=== PATIENT | female | born 1950 | race Caucasian/White ===

== ENCOUNTER → 2018-08-17 | Outpatient (CLI) | payer BC, MEDICARE ==
--- NOTE | 2018-08-17 13:07 | XR ---
EXAMINATION TYPE: XR KUB DATE OF EXAM: 08/17/2018 CLINICAL DATA: 67-year-old female with pain, possible kidney stones, PHH COMPARISON: 10/28/2012 FINDINGS: Nonobstructive bowel gas pattern. Scattered mild to moderate stool. Left renal shadow largely obscured by bowel content. No definite suspicious calcifications are seen. Again, left side is limited by bowel content. Moderate to severe degenerative change of the right hip progressed from 2012. Facet arthropathy lower lumbar spine. IMPRESSION: Nonobstructive bowel gas pattern. Left renal shadow largely obscured by bowel content. No definite fontaine spicious calcification is radiographically apparent. Progressive moderate to severe OA right hip.
== END ==
LOC: RADXRMAIN 11:20
PROVIDERS: ATTEND Urology
DX: N20.0 Calculus of kidney (principal)
CPT/HCPCS: 74018

== ENCOUNTER → 2018-09-21 | Outpatient (CLI) | payer MEDICARE, BC ==
--- NOTE | 2018-09-21 15:14 | XR ---
EXAMINATION TYPE: XR Hip Complete RT DATE OF EXAM: 09/21/2018 COMPARISON: None HISTORY: 67-year-old female complaining of right hip pain TECHNIQUE: 2 views FINDINGS: Moderate degenerative change with subchondral sclerosis and prominent collar osteophytes at the femor al head neck junction and mild axial joint space narrowing. No acute fracture, subluxation, or disloc ation. IMPRESSION: Moderate right hip OA. No acute osseous abnormality seen.
== END | disposition home or self-care (01) ==
LOC: RADXRMAIN 12:32
PROVIDERS: ATTEND Family Medicine
DX: M16.11 Unilateral primary osteoarthritis, right hip (principal)
CPT/HCPCS: 73502

== ENCOUNTER → 2020-07-18 | Outpatient (CLI) | payer MEDICARE, BC ==
--- NOTE | 2020-07-18 14:59 | XR ---
EXAMINATION TYPE: XR cervical spine comp DATE OF EXAM: 07/18/2020 COMPARISON: None HISTORY: 69-year-old female M54.2, neck and arm pain TECHNIQUE: 6 views FINDINGS: No predental space widening or prevertebral soft tissue swelling. Advanced disc/endplate degenerative change particularly from C4 through C7 levels. Prominent anterior endplate spondylosis is present wi th complete loss of disc space. Multilevel facet and uncovertebral joint arthropathy. Reversal of the normal cervical lordosis. On the left, there is moderate bony neuroforaminal narrowing at C6-C7. On the right, moderate bony neuroforaminal narrowing C6-C7 and mild additional levels. Limited odontoid view shows no gross abnormality. IMPRESSION: Moderate to advanced spondylotic change. Reversal of the normal cervical lordosis but with preserved alignment.
== END | disposition home or self-care (01) ==
LOC: RADXRMAIN 12:38
PROVIDERS: ATTEND Nurse Practitioner Family
DX: M47.812 Spondylosis without myelopathy or radiculopathy, cervical region (principal)
CPT/HCPCS: 72050

== ENCOUNTER → 2021-09-13 | Outpatient (CLI) | payer MEDICARE, BC ==
--- NOTE | 2021-09-13 16:49 | BD ---
EXAMINATION TYPE: Axial Bone Density DATE OF EXAM: 09/13/2021 COMPARISON: 06.30.2012 CLINICAL HISTORY: 70 years year old Female. ICD-10 CODE: M85.80 DISORDER OF BONE DENSITY Height: 65 Weight: 147 FRAX RISK QUESTIONS: Glucocorticoids (More than 3mos): YES (Ex: prednisone, prednisolone, methylprednisolone, dexamethasone, and hydrocortisone). History of Fracture in Adulthood: YES Secondary Osteoporosis: YES 3. Menopause before 45: YES, AT 41 Current Tobacco Use: YES RISK FACTORS HISTORY OF: HX OF NASAL FX WITH FALL 2 MOS AGO History of Wrist Fracture: LT WRIST WITH JOINT REPLACEMENT Surgery to RT HIP REPLACEMENT, AT AGE 66 YRS OLD Family History of Osteoporosis: YES, MOTHER WITHOUT HIP FX Diet low in dairy products/other sources of calcium: YES Postmenopausal woman: YES, AT AGE 41 YRS OLD Take estrogen and/or progesterone medications: YES, FOR ABOUT 5+ YRS IN THE PAST NOT NOW Lost more than 2 inches in height since high school: YES Frequent falls: RECENT 2 MOS AGO Hyperparathyroidism: NO Adrenal Insufficiency: NO MEDICATIONS: Prednisone or other steroids: YES, FOR ASTHMA, BOTH INHALER AND ORAL MEDS, INC PREDNISONE Additional Medications: BP MEDS, PAXIL, XANAX, STATIN FOR CHOLESTEROL, VIT D, NORCO Additional History: HYPERTENSION, ARTHRITIS, CHOLESTEROL, EXAM MEASUREMENTS: Bone mineral densitometry was performed using the [employer] System. Bone mineral density as measured about the Lumbar spine is: ----- L1-L4(G/cm2): 1.073 T Score Values are as follows: ----- L1: -1.1 ----- L2: -1.3 ----- L3: 0.1 ----- L4: -1.4 ----- L1-L4: -0.9 Bone mineral density has: Increased 7.7% since study of: 06.30.2012 Bone mineral density about the L hip (g/cm2): 0.955 T Score values are as follows: -----L Neck: -0.7 -----L Total: -0.4 Bone mineral density has: Decreased -7.6% since study of: 06.30.2012 FRAX%s: The graph provided illustrates a 4.9% chance for a major osteoporotic fx and a 1.1% chance fo r the hips probability for fx in 10 years time. IMPRESSION: Osteopenia (T Score between -2.5 and -1). There is slightly increased risk of fracture and the patient may be considered for treatment. Re-Screen 2-5 years. NOTE: T-SCORE=SD OF THE YOUNG ADULT MEAN.
== END | disposition home or self-care (01) ==
LOC: RADBDWWP 13:00
PROVIDERS: ATTEND Family Medicine
DX: M85.88 Other specified disorders of bone density and structure, other site (principal)
CPT/HCPCS: 77080

== ENCOUNTER → 2021-12-18 | Outpatient (CLI) | payer MEDICARE, BC ==
--- NOTE | 2021-12-18 14:38 | CTL ---
EXAMINATION TYPE: CT Low Dose Lung DATE OF EXAM ORDERED: 12/18/2021 COMPARISON: 09/08/2014 HISTORY: . Low Dose CT Lung Screening IV CONTRAST USED: None. SCREENING VISIT: First visit COMPARISON: None. TECHNIQUE: Low dose computed tomography scan was performed through the chest at 1 millimeter thick se ctions and reconstructed images in the coronal plane at [address] DIAGNOSTIC QUALITY: Satisfactory FINDINGS: LUNG NODULES: Not presentLeft lung: no nodules identified.Right lung: no nodules identified. LUNGS: COPD: Severity: Moderate Fibrosis: Severity:None Lymph nodes: None Other findings: None RIGHT PLEURAL SPACE: Effusion: None Calcification: None Thickening: None Pneumothorax: None LEFT PLEURAL SPACE: Effusion: None Calcification: None Thickening: None Pneumothorax: None HEART: Heart Size: Mildly enlarged Coronary calcification: Mild Pericardial effusion: None OTHER FINDINGS: Upper abdomen: No significant abnormality Bony thorax: Degenerative changes Supraclavicular region: No significant abnormalityOther: No significant abnormalityI IMPRESSION: COPD without evidence for distinct pulmonary nodularity. FOLLOW UP CT CHEST RECOMMENDATION: Follow-up screening in one year CT LUNG RAD: LUNG RAD CATEGORY 1 negative
== END | disposition home or self-care (01) ==
LOC: RADCTMAIN 13:50
PROVIDERS: ATTEND Family Medicine
DX: Z12.2 Encounter for screening for malignant neoplasm of respiratory organs (principal); J44.9 Chronic obstructive pulmonary disease, unspecified; Z87.891 Personal history of nicotine dependence
CPT/HCPCS: 71271

== ENCOUNTER 2023-06-28 11:29 | Emergency (ER) | payer MEDICARE, BC ==
--- NOTE | 2023-06-28 12:38 | XR ---
EXAMINATION TYPE: XR chest 2V DATE OF EXAM: 06/28/2023 COMPARISON: 10/20/2013 HISTORY: Cough TECHNIQUE: Frontal and lateral views of the chest are obtained. FINDINGS: There are a few linear opacities left lung base likely indicating minimal atelectasis or chronic inte rstitial change. There is no airspace consolidation. There is no pleural effusion or pneumothorax. The heart and pulmonary vasculature are normal. There is marked dextroscoliosis of the thoracic spine.. IMPRESSION: No acute cardiopulmonary process.
[2023-06-28] MEDS: IPRATROPIUM-ALBUTEROL 3 ML NEB INHALATION STA (12:44)
[2023-06-28] MEDS: SODIUM CHLORIDE 0.9% 1,000 ML IV STA (13:09)
[2023-06-28] MEDS: ONDANSETRON 4 MG/2 ML VIAL IVP STA (13:10)
[2023-06-28] MEDS: KETOROLAC 15 MG/ML 1 ML VIAL IVP STA (13:10)
--- NOTE | 2023-06-28 13:11 | ED ---
Abdominal Pain HPI - General Chief Complaint: Abdominal Pain Stated Complaint: abd pain Time Seen by Provider: 06/28/23 11:58 Source: patient, RN notes reviewed Mode of arrival: ambulatory Limitations: no limitations - History of Present Illness Initial Comments: This is a 72-year-old female who presents to the emergency department for abdominal pain. Reports left lower quadrant abdominal pain over the last couple of days. She has nausea but no vomiting. States that she had diarrhea yesterday and had 8 bowel movements. She has a history of diverticulitis, most recently a few years ago. States that the pain feels similar. Denies any blood in her stool. Additionally, she has had coughing and congestion over the last week. She does have a history of COPD but does not use any breathing treatments. Denies any fevers or chills. MD Complaint: abdominal pain - Related Data Home Medications Medication Instructions Recorded Confirmed ALPRAZolam [Xanax] 1 mg PO TID 10/20/13 10/20/13 Atorvastatin [Lipitor] 40 mg PO DAILY 10/20/13 10/20/13 Dextroamphetamine/Amphetamine 20 mg PO BID 10/20/13 10/20/13 [Adderall] HYDROcodone/APAP 7.5-325MG [[place] 1 tab PO BID 10/20/13 10/20/13 7.5-325] PARoxetine HCL [Paxil Cr] 25 mg PO DAILY 10/20/13 10/20/13 Tolterodine ER [Detrol LA] 4 mg PO DAILY 10/20/13 10/20/13 lisinopriL [Zestril] 20 mg PO DAILY 10/20/13 10/20/13 Previous Rx's Medication Instructions Recorded Levofloxacin [Levaquin] 500 mg PO DAILY #10 tab 10/20/13 Hydrocodone/Acetaminophen [[place] 1 each PO Q6HR PRN #20 tab 02/24/14 5-325] Atorvastatin [Lipitor] 40 mg PO DAILY #30 tablet 06/28/23 Azithromycin [Zithromax] 250 mg PO DIRECTED 5 Days #6 tab 06/28/23 NIFEdipine XL [Procardia XL] 60 mg PO DAILY #30 tab 06/28/23 PARoxetine HCL 40 mg PO DAILY #30 tablet 06/28/23 lisinopriL [Prinivil] 20 mg PO DAILY #30 tablet 06/28/23 predniSONE 50 mg PO DAILY 5 Days #5 tab 06/28/23 Allergies Allergy/AdvReac Type Severity Reaction Status Date / Time outdoor allergies Allergy Unknown Uncoded 06/28/23 11:51 Review of Systems ROS Statement: Those systems with pertinent positive or pertinent negative responses have been documented in the HPI. ROS Other: All systems not noted in ROS Statement are negative. Past Medical History Past Medical History: COPD, Hyperlipidemia, Hypertension, Osteoarthritis (OA) Additional Past Medical History / Comment(s): diverticulitis History of Any Multi-Drug Resistant Organisms: None Reported Past Surgical History: Section, Hysterectomy, Orthopedic Surgery Past Psychological History: Anxiety Smoking Status: Former smoker Past Alcohol Use History: None Reported Past Drug Use History: None Reported General Exam Limitations: no limitations General appearance: alert, in no apparent distress Head exam: Present: atraumatic, normocephalic, normal inspection Respiratory exam: Present: wheezes, decreased breath sounds, prolonged e xpiratory Cardiovascular Exam: Present: regular rate, normal rhythm, normal heart sounds. Absent: systolic murmur, diastolic murmur, rubs, gallop, clicks GI/Abdominal exam: Present: soft, tenderness (LLQ), normal bowel sounds. Absent: distended Neurological exam: Present: alert, oriented X3, CN II-XII intact Psychiatric exam: Present: normal affect, normal mood Skin exam: Present: warm, dry, intact, normal color. Absent: rash Course Vital Signs 06/28/23 06/28/23 06/28/23 11:48 12:44 12:56 Temperature 99.1 F Pulse Rate 108 H 83 85 Respiratory 18 Rate Blood Pressure 137/76 O2 Sat by Pulse 93 L Oximetry 06/28/23 06/28/23 06/28/23 13:13 15:13 18:04 Temperature 98.0 F Pulse Rate 94 84 94 Respiratory 16 20 20 Rate Blood Pressure 140/70 126/69 141/72 O2 Sat by Pulse 95 93 L 93 L Oximetry Medical Decision Making - Medical Decision Making This is a 72 year old female who presents to the emergency department for abdominal pain. Was pt. sent in by a medical professional or institution? @ -No Did you speak to anyone other than the patient for history? @ -No Did you review nursing and triage notes? @ -Yes, and I agree, it is accurate with regards to the patient's symptoms. Were old charts reviewed? @ -No Differential Diagnosis? @ -Differential Abdominal Pain Women: Appendicitis, Cholecystitis, diverticulosis, ischemic bowel, pancreatitis, hepatitis, UTI, gastroenteritis, AAA, incarcerated hernia, bowel obstruction, constipation, inflammatory bowel, hepatitis, peptic ulcer disease, splenic infarction, perforated viscus, vulvitis, ovarian torsion, PID, kidney stone, placenta abruption, this is not meant to be an all-inclusive list EKG interpreted by me (3pts min.)? @ -EKG interpreted by me demonstrating the following: Sinus rhythm. Ventricular rate 86 bpm, SD interval 133 ms, QRS duration 91 ms, QTc 405 ms. X-rays interpreted by me (1pt min.)? @ -Chest x-ray obtained, my interpretation identifies no localized consolidations or infiltrates. CT interpreted by me (1pt min.)? @ -CT scan of the abdomen and pelvis obtained. My interpretation identifies no evidence of bowel wall thickening or free air. U/S interpreted by me (1pt. min.)? @ -Not obtained What testing was considered but not performed? (CT, X-rays, U/S, labs)? Why? @ -None What meds were considered but not given? Why? @ -None Did you discuss the management of the patient with other professionals? @ -No Did you reconcile home meds? @ -No Was smoking cessation discussed for >3mins.? @ -I discussed smoking cessation for greater than 3 minutes. The risk of smoking were discussed with the patient including but not limited to risks of cancer, stroke, coronary artery disease and COPD. Also discussed with patient were multiple methods of quitting smoking. Lastly we discussed the financial cost of smoking. Was critical care preformed (if so, how long)? @ -No Were there social determinants of health that impacted care today? How? (Homelessness, low income, unemployed, alcoholism, drug addiction, transportation, low edu. Level, literacy, decrease access to med. care, shelter, rehab)? @ -No Was there de-escalation of care discussed even if they declined? (Discuss DNR or withdrawal of care, Hospice)? @ -No What co-morbidities impacted this encounter? (DM, HTN, Smoking, COPD, CAD, Cancer, CVA, Hep., AIDS, mental health diagnosis, sleep apnea, morbid obesity)? @ -COPD, smoking, diverticulosis Was patient admitted / discharged? @ -Discharged. Lab work demonstrates leukocytosis and was otherwise unremarkable. Urinalysis negative for signs of infection. COVID, influenza, and RSV testing were negative. CT scan of the abdomen and pelvis demonstrates no acute process to account for the patient's symptoms. Abdominal pain may be related to all of the coughing and a muscular strain. Due to the COPD, will treat patient for COPD exacerbation based on her symptoms. Prescription for azithromycin and prednisone provided with dosing instructions reviewed. She does have an albuterol inhaler at home that she will continue to use. She requested a temporary refill on her blood pressure, hypertension, and depression medication due to difficulty getting in with her PCP. This was provided as well. Patient discharged home in stable condition. Undiagnosed new problem with uncertain prognosis? @ -None Drug Therapy requiring intensive monitoring for toxicity (Heparin, Nitro, Ins ulin, Cardizem)? @ -None Were any procedures done? @ -None Diagnosis/symptom? @ -Abdominal pain Acute, or Chronic, or Acute on Chronic? @ -Acute Uncomplicated (without systemic symptoms) or Complicated (systemic symptoms)? @ -Uncomplicated Side effects of treatment? @ -None Exacerbation, Progression, or Severe Exacerbation] @ -Not applicable Poses a threat to life or bodily function? @ -No Diagnosis/symptom? @ -COPD exacerbation Acute, or Chronic, or Acute on Chronic? @ -Acute on chronic Uncomplicated (without systemic symptoms) or Complicated (systemic symptoms)? @ -Uncomplicated Side effects of treatment? @ -None Exacerbation, Progression, or Severe Exacerbation] @ -Exacerbation Poses a threat to life or bodily function? @ -No Return precautions reviewed in depth, the patient is instructed to return to the emergency department with any new, worsening, or concerning symptoms. Patient verbalized understanding. This case was discussed in detail with the attending ED physician, Dr. Cain. Presentation, findings, and treatment plan discussed in detail as well. - Lab Data Result diagrams: 06/28/23 12:22 06/28/23 12:22 Lab Results 06/28/23 06/28/23 06/28/23 Range/Units 12:22 12:22 12:22 WBC 11.6 H (3.8-10.6) k/uL RBC 4.81 (3.80-5.40) m/uL Hgb 14.4 (11.4-16.0) gm/dL Hct 43.4 (34.0-46.0) % MCV 90.3 (80.0-100.0) fL MCH 30.0 (25.0-35.0) pg MCHC 33.3 (31.0-37.0) g/dL RDW 12.5 (11.5-15.5) % Plt Count 411 (150-450) k/uL MPV 7.4 Neutrophils % 68 % Lymphocytes % 24 % Monocytes % 6 % Eosinophils % 0 % Basophils % 1 % Neutrophils # 7.9 H (1.3-7.7) k/uL Lymphocytes # 2.8 (1.0-4.8) k/uL Monocytes # 0.7 (0-1.0) k/uL Eosinophils # 0.0 (0-0.7) k/uL Basophils # 0.1 (0-0.2) k/uL Sodium 137 (137-145) mmol/L Potassium 3.9 (3.5-5.1) mmol/L Chloride 103 (98-107) mmol/L Carbon Dioxide 22 (22-30) mmol/L Anion Gap 12 mmol/L BUN 14 (7-17) mg/dL Creatinine 0.92 (0.52-1.04) mg/dL Est GFR (CKD-EPI)AfAm 73 (>60 ml/min/1.73 sqM) Est GFR (CKD-EPI)NonAf 63 (>60 ml/min/1.73 sqM) Glucose 99 (74-99) mg/dL Plasma Lactic Acid Dmitry (0.7-2.0) mmol/L Calcium 9.8 (8.4-10.2) mg/dL Total Bilirubin 0.4 (0.2-1.3) mg/dL AST 25 (14-36) U/L ALT 19 (4-34) U/L Alkaline Phosphatase 102 (38-126) U/L Total Protein 7.3 (6.3-8.2) g/dL Albumin 4.5 (3.5-5.0) g/dL Amylase 78 (30-110) U/L Lipase 170 (23-300) U/L Urine Color Colorless Urine Appearance Clear (Clear) Urine pH 6.0 (5.0-8.0) Ur Specific Hessel 1.011 (1.001-1.035) Urine Protein Negative (Negative) Urine Glucose (UA) Negative (Negative) Urine Ketones Negative (Negative) Urine Blood Negative (Negative) Urine Nitrite Negative (Negative) Urine Bilirubin Negative (Negative) Urine Urobilinogen <2.0 (<2.0) mg/dL Ur Leukocyte Esterase Negative (Negative) Influenza Type A (PCR) (Not Detectd) Influenza Type B (PCR) (Not Detectd) RSV (PCR) (Not Detectd) SARS-CoV-2 (PCR) (Not Detectd) 06/28/23 06/28/23 Range/Units 12:22 12:22 WBC (3.8-10.6) k/uL RBC (3.80-5.40) m/uL Hgb (11.4-16.0) gm/dL Hct (34.0-46.0) % MCV (80.0-100.0) fL MCH (25.0-35.0) pg MCHC (31.0-37.0) g/dL RDW (11.5-15.5) % Plt Count (150-450) k/uL MPV Neutrophils % % Lymphocytes % % Monocytes % % Eosinophils % % Basophils % % Neutrophils # (1.3-7.7) k/uL Lymphocytes # (1.0-4.8) k/uL Monocytes # (0-1.0) k/uL Eosinophils # (0-0.7) k/uL Basophils # (0-0.2) k/uL Sodium (137-145) mmol/L Potassium (3.5-5.1) mmol/L Chloride (98-107) mmol/L Carbon Dioxide (22-30) mmol/L Anion Gap mmol/L BUN (7-17) mg/dL Creatinine (0.52-1.04) mg/dL Est GFR (CKD-EPI)AfAm (>60 ml/min/1.73 sqM) Est GFR (CKD-EPI)NonAf (>60 ml/min/1.73 sqM) Glucose (74-99) mg/dL Plasma Lactic Acid Dmitry 1.0 (0.7-2.0) mmol/L Calcium (8.4-10.2) mg/dL Total Bilirubin (0.2-1.3) mg/dL AST (14-36) U/L ALT (4-34) U/L Alkaline Phosphatase (38-126) U/L Total Protein (6.3-8.2) g/dL Albumin (3.5-5.0) g/dL Amylase (30-110) U/L Lipase (23-300) U/L Urine Color Urine Appearance (Clear) Urine pH (5.0-8.0) Ur Specific Hessel (1.001-1.035) Urine Protein (Negative) Urine Glucose (UA) (Negative) Urine Ketones (Negative) Urine Blood (Negative) Urine Nitrite (Negative) Urine Bilirubin (Negative) Urine Urobilinogen (<2.0) mg/dL Ur Leukocyte Esterase (Negative) Influenza Type A (PCR) Not Detected (Not Detectd) Influenza Type B (PCR) Not Detected (Not Detectd) RSV (PCR) Not Detected (Not Detectd) SARS-CoV-2 (PCR) Not Detected (Not Detectd) - Radiology Data Radiology results: report reviewed, image reviewed Disposition Clinical Impression: Nicotine dependence, Abdominal pain, COPD exacerbation Disposition: HOME SELF-CARE Instructions (If sedation given, give patient instructions): Abdominal Pain (ED) Additional Instructions: Return to the emergency department with any new, worsening, or concerning symptoms. Take the antibiotic as prescribed for 5 days and the prednisone daily for 5 days. Continue to use your albuterol inhaler as needed. Follow up with your primary care provider in 1-2 days. Prescriptions: Atorvastatin [Lipitor] 40 mg PO DAILY #30 tablet PARoxetine HCL 40 mg PO DAILY #30 tablet predniSONE 50 mg PO DAILY 5 Days #5 tab lisinopriL [Prinivil] 20 mg PO DAILY #30 tablet NIFEdipine XL [Procardia XL] 60 mg PO DAILY #30 tab Azithromycin [Zithromax] 250 mg PO DIRECTED 5 Days #6 tab Is patient prescribed a controlled substance at d/c from ED?: No Referrals: None,Stated [Primary Care Provider] - 1-2 days Time of Disposition: 17:43
[2023-06-28 13:16] LABS: Basophils # (A) 0.1 k/uL (0-0.2); Basophils % (A) 1 %; Eosinophils % (A) 0 %; HCT 43.4 % (34.0-46.0); HGB 14.4 gm/dL (11.4-16.0); Lymphocytes # (A) 2.8 k/uL (1.0-4.8); Lymphocytes % (A) 24 %; MCHC 33.3 g/dL (31.0-37.0); MCV 90.3 fL (80.0-100.0); Mean Platelet Volume 7.4; Monocytes # (A) 0.7 k/uL (0-1.0); Monocytes % (A) 6 %; Neutrophils # (A) 7.9 k/uL (1.3-7.7); Neutrophils % (A) 68 %; Platelet Count 411 k/uL (150-450); RBC 4.81 m/uL (3.80-5.40); RDW 12.5 % (11.5-15.5); WBC 11.6 k/uL (3.8-10.6)
[2023-06-28 13:21] LABS: Appearance,Urine Clear (Clear); Bilirubin,Urine Negative (Negative); Blood,Urine Negative (Negative); Color,Urine Colorless; Glucose,Urine (UA) Negative (Negative); Ketones,Urine Negative (Negative); Leukocyte Esterase,Urine Negative (Negative); Nitrite,Urine Negative (Negative); Protein,Urine Negative (Negative); Specific Gravity,Urine 1.011 (1.001-1.035); Urobilinogen,Urine <2.0 mg/dL (<2.0)
[2023-06-28 13:26] LABS: ALT 19 U/L (4-34); AST 25 U/L (14-36); African American GFR (CKD) 73 (>60 ml/min/1.73 sqM); Albumin 4.5 g/dL (3.5-5.0); Alkaline Phosphatase 102 U/L (38-126); Amylase 78 U/L (30-110); Anion Gap 12 mmol/L; Blood Urea Nitrogen 14 mg/dL (7-17); Calcium 9.8 mg/dL (8.4-10.2); Carbon Dioxide 22 mmol/L (22-30); Chloride 103 mmol/L (98-107); Glucose 99 mg/dL (74-99); Lipase 170 U/L (23-300); Non-African American GFR(CKD) 63 (>60 ml/min/1.73 sqM); Potassium 3.9 mmol/L (3.5-5.1); Sodium 137 mmol/L (137-145); Total Bilirubin 0.4 mg/dL (0.2-1.3); Total Protein 7.3 g/dL (6.3-8.2)
[2023-06-28] MEDS: MORPHINE SULFATE 2 MG/ML SYRINGE IVP STA (15:07)
--- NOTE | 2023-06-28 15:19 | CT ---
EXAMINATION TYPE: CT abdomen pelvis w con CT DLP: 751.2 mGycm, Automated exposure control for dose reduction was used. DATE OF EXAM: 06/28/2023 2:20 PM COMPARISON: None. CLINICAL INDICATION:Female, 72 years old with history of LLQ abdominal pain; LLQ abdominal pain TECHNIQUE: Axial CT of the abdomen and pelvis. Sagittal and coronal reformats were created on a [employer] workstation. Contrast used:100ml mL of Isovue 300 with IV Contrast, (none if empty) Oral contrast used: without Oral Contrast (none if empty) FINDINGS: LOWER CHEST: Chronic appearing deformity of the lower thorax with the mediastinal structures shifted somewhat towards the left. Bibasilar lung scarring and/or subsegmental atelectasis. No pleural or per icardial effusion. Heart size upper normal. No pericardial effusion. There are moderate calcification s of the visualized coronary arteries, aortic valve and root. The distal esophagus is mildly patulous and displaced to the left of the aorta. ABDOMEN LIVER: Unremarkable GALLBLADDER AND BILE DUCTS: Unremarkable gallbladder. No biliary ductal dilatation. PANCREAS: Unremarkable. SPLEEN: Unremarkable. ADRENAL GLANDS: Mildly thickened and small nodular appearance of the adrenals, could be due to hyperp lasia and/or adenomatoid changes.. KIDNEYS AND URETERS: Kidneys enhance symmetrically. No evidence of hydronephrosis or visible renal ca lculus. The ureters are unremarkable. Small bilateral parapelvic cysts. Several tiny hypodense lesion s throughout the renal cortices, probably also cysts. PELVIS Evaluation is limited by significant streak artifact emanating from right hip prosthesis. BLADDER: Grossly unremarkable as seen. REPRODUCTIVE: Limited assessment, no reproductive organs are readily identified. ABDOMEN & PELVIS STOMACH AND BOWEL: Stomach and small bowel are nondistended, no evidence of obstruction. The append ix is not seen with certainty but there is no inflammatory process seen in the pericecal region. Sev eral clustered radiodense rounded structures are seen within the cecum, compatible some sort of inges cody material. A few of these are scattered more distally. Mild to moderate stool throughout the colon . Numerous diverticula are seen in the descending and sigmoid colon without clear evidence of focal i nflammation. Mildly thickened appearance of the wall throughout the sigmoid region might be due to th e diverticular disease itself. There appears to be some stool and moderate gaseous distention of the upper rectum. Thickening of the lower rectal wall cannot be excluded from this exam. PERITONEUM/RETROPERITONEUM: No evidence of pneumoperitoneum or free fluid. VASCULATURE: Moderate to severe atherosclerotic calcifications are present throughout the abdominal a luis eduardo and its branches. No evidence of aortic aneurysm. Portal veins are enhancing. Splenic vein is patent. LYMPH NODES: No enlarged nodes by CT criteria. SOFT TISSUE/ABDOMINAL WALL: Unremarkable MUSCULOSKELETAL: Right total hip arthroplasty in place with streak artifact limiting assessment of ad jacent tissues. Mild left hip arthropathy. Generally mild to moderate degenerative changes of the vis ualized spine, greatest at L5-S1 where there is moderate degenerative disc disease with height loss a nd marginal osteophytes. Along with facet arthrosis there is moderate bilateral neural foraminal sten osis and mild to moderate canal stenosis at this level. Chronic appearing Schmorl's node along the fontaine perior endplate L3. An acute compression fracture is not suggested. There is mild levocurvature cente red around the upper lumbar region. IMPRESSION: 1. No clear evidence of an acute abnormality to explain the patient's symptoms. 2. Numerous colonic diverticula are seen, without clear-cut evidence of diverticulitis. 3. Other chronic and likely incidental findings as above.
[2023-06-28 15:39] VITALS: RESP 20
[2023-06-28] MEDS: BENZONATATE 100 MG CAP PO STA (15:46)
[2023-06-28] MEDS: AZITHROMYCIN 500 MG TAB PO STA (15:47)
[2023-06-28] MEDS: methylPREDNISolone SOD SUCCI 125 MG/2 ML VIAL IV STA (15:47)
[2023-06-28] MEDS: ALPRAZolam 1 MG TAB PO STA (17:07)
[2023-06-28 18:22] VITALS: BP 141/72; PULSE 94; TEMP 98
== END 2023-06-28 18:07 | disposition home or self-care (01) ==
LOC: EC 11:29
DX: F17.200 Nicotine dependence, unspecified, uncomplicated (principal); K57.30 Diverticulosis of large intestine without perforation or abscess without bleeding; J44.1 Chronic obstructive pulmonary disease with (acute) exacerbation; Z88.8 Allergy status to other drugs, medicaments and biological substances
CPT/HCPCS: 99285; 96374; 96375 ×3; 96361; 99406; 36415; 94640; 93005; 80053; 82150; 83605; 83690; 85025; 81003; 87636; 71046; 74177; J2930; J2405; J2270; J1885; Q9967

== ENCOUNTER → 2023-08-28 | Outpatient (CLI) | payer MEDICARE, BC ==
--- NOTE | 2023-08-28 13:26 | CTL ---
EXAMINATION TYPE: CT Low Dose Lung DATE OF EXAM ORDERED: 08/28/2023 HISTORY: Lung cancer screening CT DLP: 88.[address] CTDI: 2.7 mGy Automated exposure control for dose reduction was used. COMPARISON: 12/18/2021 TECHNIQUE: Low dose computed tomography scan was performed through the chest at 1 mm thick sections a nd reconstructed images in multiple planes at 1 mm and [address] DIAGNOSTIC QUALITY: Satisfactory FINDINGS: There are marked emphysematous changes. There are a few scattered micronodules which are stable. There are no new or suspicious lung masses o r nodules. There is no abnormal airspace/consolidative density. There are mild chronic interstitial changes in t he left lung base medially. There is no pleural effusion or pneumothorax. The heart and great vessels chest are normal. There is no mediastinal, hilar or axillary adenopathy. Limited scanning through the upper abdomen reveals no gross abnormality. No focal osseous lesions are seen. IMPRESSION: 1. Lung RADS category 2 benign findings. Continue routine screening at yearly intervals. 2. Marked emphysematous changes. 3. No acute cardiopulmonary disease.
== END | disposition home or self-care (01) ==
LOC: RADCTMAIN 12:03
PROVIDERS: ATTEND Family Medicine
DX: Z12.2 Encounter for screening for malignant neoplasm of respiratory organs (principal); J43.9 Emphysema, unspecified; F17.211 Nicotine dependence, cigarettes, in remission
CPT/HCPCS: 71271

== ENCOUNTER → 2023-10-24 | Outpatient (CLI) | payer MEDICARE, BC ==
--- NOTE | 2023-10-24 18:41 | MR ---
EXAMINATION TYPE: MR lumbar spine wo con DATE OF EXAM: 10/24/2023 5:22 PM CLINICAL INDICATION:Female, 73 years old with history of M54.50 LBP, M54.42, G89.4, M15.9, M41.9 SCOL IOSIS, Low back pain that radiates down left leg COMPARISON: None TECHNIQUE: Multi planar, multi sequence imaging was performed utilizing: T1-weighted, T2-weighted, a nd turbo inversion recovery imaging of the lumbar spine. IV Contrast: (None if empty) FINDINGS: Alignment: The lumbar vertebral bodies have preserved heights and alignment. Cord: The conus medullaris and the distal spinal cord appear unremarkable with regards to their signa l intensity and morphology. Bones/Discs: Multilevel disc degeneration changes with osteophyte formation, disc space narrowing, Sc hmorl's nodes, and facet joint arthropathy. Schmorl's nodes at superior endplate of L3 without bony edema. Intervertebral disc signal is maintained. No abnormal inversion recovery signal to suggest bon y edema. T12-L1: No evidence of significant spinal canal stenosis or neural foraminal stenosis. L1-L2: No evidence of significant spinal canal stenosis or neural foraminal stenosis. L2-L3: No evidence of significant spinal canal stenosis or neural foraminal stenosis. L3-L4: Disc bulge and facet joint arthropathy result in mild spinal canal and mild bilateral neural f oraminal stenosis. L4-L5: Disc bulge and facet joint arthropathy result in mild spinal canal and mild bilateral neural f oraminal stenosis. L5-S1: The disc has a rounded posterior morphology without significant spinal canal stenosis. Facet j oint arthropathy with moderate to severe right and severe left neural foraminal stenosis. No significant spinal canal or neural foraminal stenosis in the remainder of the visualized levels. Other findings: Bilateral peripelvic renal cysts. IMPRESSION: 1. No definitive evidence of disc herniation or significant spinal canal stenosis. 2. Multilevel disc degeneration with associated osteoarthritic changes. Neural foraminal stenosis wo rse at L5-S1 with severe left and moderate severe right.
== END | disposition home or self-care (01) ==
LOC: RADMRIMAIN 15:56
PROVIDERS: ATTEND Family Medicine
DX: G89.4 Chronic pain syndrome (principal); M54.42 Lumbago with sciatica, left side; M48.061 Spinal stenosis, lumbar region without neurogenic claudication; M51.36 Other intervertebral disc degeneration, lumbar region; M41.9 Scoliosis, unspecified
CPT/HCPCS: 72148